=== PATIENT | male | born 1995 | race Caucasian/White ===

== ENCOUNTER 2020-04-02 15:32 | Emergency (ER) | payer MEDICAID ==
[2020-04-02 15:38] VITALS: BP 112/56
[2020-04-02] MEDS ORDERED: BACITRACIN ZINC OINT 1 PACKET TOP STA (16:14)
[2020-04-02] MEDS ORDERED: BUFFERED LIDOCAINE 10 ML SYRINGE SUBQ STA (16:14)
--- NOTE | 2020-04-02 16:16 | ED Physician Documentation ---
History of Present Illness - Stated complaint Stated Complaint: LEFT FOOT INJURY - Chief complaint Chief Complaint: Trauma Ext - Additonal information Additional information: 24-year-old male presents the emergency department for evaluation of a left great toe injury. About 10 days ago he dropped a heavy bucket on the great toe. Initially it hurt along the lateral edge of the toe but 2 days ago he began to notice swelling and erythema at the proximal cuticle with a little bit of purulent drainage. No history of previous injury to the toe. Is not a diabetic. No recent antibiotics is otherwise healthy. Review of Systems Constitutional: reports: Reviewed and negative Eyes: reports: Reviewed and negative Ears: reports: Reviewed and negative Nose: reports: Reviewed and negative Throat: reports: Reviewed and negative Cardiac: reports: Reviewed and negative Respiratory: reports: Reviewed and negative GI: reports: Reviewed and negative : reports: Reviewed and negative Skin: reports: Lesions (left great toe proximal cuticle) Musculoskeletal: reports: Reviewed and negative Neurologic: reports: Reviewed and negative PD PAST MEDICAL HISTORY - Present Medications Home Medications: Ambulatory Orders Medication Instructions Recorded Confirmed Sulfamethox/Trimeth 800/160 1 each PO BID #14 tab 04/02/20 [Bactrim Ds 800/160] - Allergies Allergies/Adverse Reactions: Allergies Allergy/AdvReac Type Severity Reaction Status Date / Time No Known Drug Allergies Allergy Verified 04/02/20 15:34 PD ED PE EXPANDED - General General: Alert, No acute distress - Extremities Extremities: Left toe(s) (Great toe: mild swelling, erythema with purulet draiange and dome proximal cuticle. 2+ distal DP pulse) Results - Vitals Vitals: Vital Signs - 24 hr 04/02/20 15:35 Temperature 36.3 C L Heart Rate 72 Respiratory 16 Rate Blood Pressure 112/56 L O2 Saturation 99 Oxygen O2 Source Room air Procedures - Abscess I&D (location) left great toe Preparation: Lidocaine 1%, Other Incision: Incised with scalpel, Purulent drainage, Other (Early paronychia left great toe proximal cuticle.) Other: Pt tolerated well PD MEDICAL DECISION MAKING - ED course Complexity details: re-evaluated patient, d/w patient ED course: 24-year-old male presents emergency department with 10 days of left great toe pain after dropping a bucket on it however 2 days ago he developed swelling erythema and milky drainage at the proximal cuticle. This is consistent with a early paronychia. X-ray of the toe does not show any acute fractures or dislocations. We were able to adequately drain the paronychia at the bedside and a moderate amount of purulent drainage was achieved. I did offer this gentleman Bactrim at this time but he would like to try warm salt water soaks before starting systemic antibiotics. Advised that if infection not improving 2 days then to fill the prescription for the antibiotics. Emergent return precautions were discussed. Departure - Departure Disposition: 01 Home, Self Care Clinical Impression: Paronychia Condition: Stable Record reviewed to determine appropriate education?: Yes Instructions: ED Paronychia Ch Prescriptions: Sulfamethox/Trimeth 800/160 [Bactrim Ds 800/160] 1 each PO BID #14 tab Comments: You were seen for left great toe pain. It looks like you have an infection in the cuticle that is called a paronychia. We were able to drain this at the bedside. Shower normally and once a day soak your foot in warm Epson salt. After the shower and soaking apply any antibiotic ointment and a simple bandage. If you feel that redness and discomfort is not improving in 48 hours then fill the prescription for the Bactrim and begin taking as directed. Return sooner for any further concerns of infection not improving with the oral antibiotics.
--- NOTE | 2020-04-02 16:26 | XRAY Report ---
PROCEDURE: Foot 2 View LT INDICATIONS: r/o fx great toe TECHNIQUE: AP and lateral views of the foot were acquired. COMPARISON: None FINDINGS: Bones: No acute fractures or dislocations. No suspicious bony lesions. Soft tissues: No tibiotalar joint effusion. Achilles tendon appears normal. IMPRESSION: Left foot without acute or subacute osseous abnormalities. Normal alignment. Reviewed by: Devonte Coates MD on 04/02/2020 4:25 PM PST Approved by: Devonte Coates MD on 04/02/2020 4:25 PM PST Station ID: [id number]
== END 2020-04-02 16:53 | disposition home or self-care (01) ==
LOC: ED 15:32
DX: S99.922A Unspecified injury of left foot, initial encounter (principal); L03.032 Cellulitis of left toe; W20.8XXA Other cause of strike by thrown, projected or falling object, initial encounter
CPT/HCPCS: 10060; 73620; 99283; A9270